=== PATIENT | male | born 1980 | race Caucasian/White ===

== ENCOUNTER 2017-03-13 14:36 | Emergency (ER) | payer OTHER ==
[~2017-03-13] VITALS: Ht 180.3 cm; Wt 107.5 kg
[2017-03-13] MEDS ORDERED: IBUPROFEN 800800 M1 PO (16:20)
[2017-03-13] MEDS ORDERED: TRAMADOL 50 MG50 MG PO (16:20)
[2017-03-13 16:51] VITALS: BP 138/98
== END 2017-03-13 16:55 | disposition home or self-care (01) ==
LOC: M.ERS 14:36
DX: M54.5 Low back pain (principal); M25.561 Pain in right knee; F17.200 Nicotine dependence, unspecified, uncomplicated